=== PATIENT | male | born 1990 | race Caucasian/White ===

== ENCOUNTER 2018-09-27 11:18 | Emergency (ER) | payer MEDICAID ==
[~2018-09-27] VITALS: Ht 175.3 cm; Wt 86.5 kg
[2018-09-27 15:00] VITALS: BP 124/91
== END 2018-09-27 15:30 | disposition home or self-care (01) ==
LOC: ER 11:18
DX: G51.0 Bell's palsy (principal); S00.83XA Contusion of other part of head, initial encounter; Y04.2XXA Assault by strike against or bumped into by another person, initial encounter; Y93.89 Activity, other specified; Y92.89 Other specified places as the place of occurrence of the external cause; F15.10 Other stimulant abuse, uncomplicated
CPT/HCPCS: 82962; 99284

== ENCOUNTER 2019-08-19 13:01 | Emergency (ER) | payer MEDICAID ==
[~2019-08-19] VITALS: Ht 165.1 cm; Wt 60.0 kg
[2019-08-19] MEDS ORDERED: KETOROLAC 60MG/2ML VIAL IM ONE (15:15)
[2019-08-19 15:48] VITALS: BP 125/85
== END 2019-08-19 16:05 | disposition home or self-care (01) ==
LOC: ER 13:01
DX: K08.89 Other specified disorders of teeth and supporting structures (principal); R03.0 Elevated blood-pressure reading, without diagnosis of hypertension
CPT/HCPCS: 96372; 99283; J1885